=== PATIENT | female | born 1970 | race Caucasian/White ===

== ENCOUNTER → 2020-06-11 | Outpatient (CLI) | payer OTHER ==
[~2020-06-11] MED LIST: PHENERGAN 25 MG25 M1 PO
== END ==
LOC: CT 07:32
DX: R10.9 Unspecified abdominal pain (principal); Z98.84 Bariatric surgery status
CPT/HCPCS: 36415; 82565; Q9967

== ENCOUNTER → 2020-10-08 | Outpatient (CLI) | payer OTHER | LOC: RAD 16:15 | DX: M54.5 Low back pain (principal); M47.816 Spondylosis without myelopathy or radiculopathy, lumbar region; M25.78 Osteophyte, vertebrae; G95.89 Other specified diseases of spinal cord | CPT/HCPCS: 72110; 72170 ==

== ENCOUNTER → 2021-05-24 | Outpatient (CLI) | payer OTHER | LOC: RAD 08:27 | DX: R10.9 Unspecified abdominal pain (principal); K21.9 Gastro-esophageal reflux disease without esophagitis | CPT/HCPCS: 74246; 74248 ==

== ENCOUNTER 2021-12-22 12:02 | Emergency (ER) | payer OTHER ==
[2021-12-22 13:14] LABS: HEMOGLOBIN 13.8 gm/dl (12.3-15.3); RED BLOOD COUNT 4.85 M/UL (4.00-5.10)
[2021-12-22 13:40] LABS: BUN/CREATININE RATIO 20 (0-10)
== END 2021-12-22 16:48 | disposition home or self-care (01) ==
LOC: ER1 12:02
PROVIDERS: Emergency Medicine
DX: R10.9 Unspecified abdominal pain (principal); R11.0 Nausea
CPT/HCPCS: 80053; 81001; 83690; 85025; 96374; 99284; J1170; Q9967